=== PATIENT | female | born 1950 | race Caucasian/White ===

== ENCOUNTER 2023-07-23 10:17 | Outpatient (CLI) | payer MEDICARE, OTHER, SELFPAY ==
--- NOTE | 2023-07-23 10:15 | MR_ITS ---
[address] [address] Phone:?[phone] Fax:?[phone] Referring Physician Information: Chao Rosa M.D. [id number] [facility] [address] Phone:?[phone] Fax:?[phone] Patient:Xiomara Hernandez D.O.B:?1950 Sex:?Female Phone:?[phone] [facility] MRN:?[id number] Exam Date:?07/23/2023 EXAM: MRI of the RIGHT SHOULDER, without contrast CLINICAL INFORMATION: Female, 73 years old, with right shoulder pain. INDICATION: Evaluate for rotator cuff tear. PRIOR SURGERY: None reported. PLAIN FILMS: Shoulder radiograph dated 07/21/2023. COMPARISONS: No prior MRIs available. TECHNICAL INFORMATION: Using a 1.5T MR scanner and a localizing surface coil: coronal obliques: PD, T2, STIR sagittal obliques: PD, T2 axials: PD, T2 SEDATION: None CONTRAST: None FINDINGS: Bones: Proximal humerus: Large marginal erosions are present along the superolateral and anterosuperior aspects of the humeral head (sagittal PD series 7 images 5 & 10). This is associated with moderate bone marrow edema throughout the femoral head. No stress/occult fracture. Glenoid: Chronic-appearing deformity of the anteroinferior glenoid, without a discrete fracture, likely with superimposed poorly defined erosions. No discrete osseous Bankart lesion. Rotator cuff and muscles/tendons: Supraspinatus: Mild-moderate supraspinatus tendinopathy and fraying, without discrete tear. No muscle atrophy. Infraspinatus: Mild-moderate infraspinatus tendinopathy and fraying, without discrete tear. No muscle atrophy. Teres minor: No tendinopathy, tear or atrophy. Subscapularis: Mild tendinopathy of the superior distal subscapularis, without tendon tear or muscle atrophy. Deltoid: No strain or atrophy. Coracoacromial arch: Acromion morphology: The acromion has type II morphology. No discrete subacromial osseous spur or os acromiale. Acromiohumeral space: The acromiohumeral space is within normal limits. Coracohumeral space: The coracohumeral space is within normal limits. Acromioclavicular joint: Joint: Mild AC joint arthropathy with superimposed distal clavicular osteolysis (axial T2 series 3 images 35 & 36). Ligaments: Coracoclavicular ligaments are intact. Bursae: Subacromial-subdeltoid: Mild-moderate subacromial-subdeltoid bursitis. Subcoracoid: No convincing subcoracoid bursal thickening/bursitis. Biceps tendon: Nonvisualization of the intra-articular biceps long head tendon, which appears retracted approximately 4.7 cm down the humerus (sagittal T2 series 8 image 8). Glenohumeral joint: Effusion/cyst: Large glenohumeral joint effusion, with extensive synovitis. Articular cartilage: Humeral head: Moderate generalized thinning of the humeral head articular cartilage, with minimal marginal osteophytosis Glenoid: Moderate-marked thinning of the glenoid articular cartilage, with minimal osteophytosis. Loose bodies: No discrete intra-articular body within the joint. Labrum:?Circumferential degeneration and tearing of the labrum, which is of doubtful clinical significance. Inferior glenohumeral ligament/axillary pouch:?Intact. The axillary pouch is normal in thickness and signal. No evidence of adhesive capsulitis or capsular injury. IMPRESSION: 1. 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 2. Full-thickness avulsion/disruption of the intra-articular biceps long head tendon, with tendon retraction approximately 4.7 cm down the humerus. 3. Mild AC joint arthropathy with superposed distal clavicular osteolysis, which would further support rheumatoid arthritis as an underlying etiology. 4. Mild-moderate supraspinatus & infraspinatus and mild subscapularis tendinopathy. No rotator cuff tendon tear. 5. Chronic deformity of the anteroinferior glenoid, which is likely posttraumatic, but with likely adjacent osseous erosions. 6. Circumferential degeneration and tearing of the labrum. 7. Mild-moderate subacromial-subdeltoid bursitis. BC Electronically signed on 07/23/2023 12:44:00 PM by Srikanth Rainey M.D.
== END 2023-07-23 10:18 | disposition home or self-care (01) ==
LOC: MRI 10:18
PROVIDERS: Visit Provider Orthopaedic Surgery Sports Medicine
DX: M25.511 Pain in right shoulder (principal); M75.101 Unspecified rotator cuff tear or rupture of right shoulder, not specified as traumatic; M06.9 Rheumatoid arthritis, unspecified; S43.491A Other sprain of right shoulder joint, initial encounter; M75.51 Bursitis of right shoulder
CPT/HCPCS: 73221

== ENCOUNTER 2023-09-24 08:30 | Outpatient (RCR) | payer MEDICARE, OTHER, SELFPAY ==
--- NOTE | 2023-08-18 09:35 | PT.OPEX ---
[facility] Start: 08/18/23 07:10 Freq: Status: Active Protocol: Document 08/18/23 07:10 ISIDORO (Rec: 08/18/23 08:36 ISIDORO [id number]) E-signed By Miladis Shields, PT Physical Therapy Outpatient Evaluation Insurance Information Recert Due Date 11/12/23 Insurance Name Medicare B Medical Diagnosis Rt Shoulder RA, Rupture of Rt biceps long head Rt RC Tensonopathy Arthritis Rt AC joint Treating Diagnosis Rt shoulder pain, impaired ease of ADL's Rt shoulder impaired AROM Referring MD Dr Chao Rosa Subjective Subjective Lianna arrived 20 min late for her appt, stating she still has a difficult time assessing how much time it will take her to get ready in the morning, with her Rt arm not working as well. She reports having a trauma - got her feet tangled in a coat and she fell. She had immediate pain, occurred about 6 weeks ago. MRI demo advanced arthritis but no rotator cuff tear. Long head biceps tear. Rt dominant /Rt involved arm. Just now able to wash her own hair. The absolute hardest thing to do is put a bra on - even hooking in forward position. She works as a patent prosecution paralegal and computer use is now easier in standing than sitting. Have been using ice. Pain at front of shoulder and at the top of her shoulder. She sleeps ok, is able to get comfortable and still sleep on her Rt side. She does report having carpel tunnel and has had N/T on/off for a while. Have been doing neural glides. Live alone, . Do take ibuprofen 3X/ Day. Very difficult to complete home cleaning. Taking trash out is hard, take smaller loads. Even eating can be hard if she is tired. 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 Preferred Name Lianna Precautions Treatment Precautions/Contraindications RA/OA Therapy Limitations/Systems Review Vision Assessment Assessment/Impression 73 yo female with DX of Rt shoulder biceps long head rupture, Rt shoulder RC tendinopathy, Rt AC joint OA. She has full AROM, but with pain report of 5/10 end range - more pain returning to neutral. CX AROM is WNL, slightly reduced and painful end range Lt ROT. MMT 3+/5 FF and ABD, ER. 5/5 EXT and IR ( tested in neutral position of shoulder in stance). she has good posture and only slight Rt shoulder elevation and guarding. Hypertonicity of biceps, pect major/minor, UT and deltoid cuff. PROM in supine with slight long arm distraction is WNL and pain free. Trigger point reactive at UT and along soft tissue of med and superior scapular borders miryam. She will benefit from continued skilled physical therapy to provide STM/TPR and progression of stretch/strength HEP. Thank you for this referral. Primary Functional Limitations Pain and strength defiict Plan of Care Rehabilitation Potential Good Physical Therapy Goals In 4-6 visits, Lianna will be able to: 1. Sleep on Rt side for up to 6 hours without awakening due to pain greater than 3/10 Rt shoulder 2. IND in HEP with emphasis on alignment, reps and HOLD 3. Repetitive computer use ( work) for up to 90 min at a time without pain greater than 3/10 75% of the time and no increase in N/T In 8-10 visits, Lianna will be able to: 1. AROM WNL pain free end range to allow reaching into cabinet and lift/carry up to 5 # without pain greater than 2/ 10 90% of the time 2. MMT 5/5 to return to PLOF with house cleaning and self cares 3. hook and place bra comfortably on body without pain 4. Repetitive UE use for up to 2 hours without pain greater than 3/10 90% of the time - resume cooking, cleaning, self cares/fix her hair, drive, computer use - all at PLOF. Coordination/Communication With Referral Source Treatment Plan/Direct Interventions Joint Mobilization,Manual Therapy,Self-Care/Home Management,Therapeutic Activities,Therapeutic Exercises Frequency/Duration 1X/Wk for 10 visits Patient Will Be Discharged From Therapy Completion of LTG(s),Skills Plateau,Independent w/HEP, Independently Progressing Evaluation Billing Untimed Code Treatment Minutes 26 Complexity Moderate Certification Information Initial Certification Date 08/18/23 Ending Certification Date 11/12/23 Provider Signature Shows Agreement With POC & Medical Necessity Physician Signature & Date Requested Please Sign/Date Here Physician Comment/Change : Physician NPI Number #
== END 2024-01-22 23:59 | disposition home or self-care (01) ==
PROVIDERS: Visit Provider Orthopaedic Surgery Sports Medicine
DX: M06.9 Rheumatoid arthritis, unspecified (principal); S46.211A Strain of muscle, fascia and tendon of other parts of biceps, right arm, initial encounter; M19.011 Primary osteoarthritis, right shoulder; M67.911 Unspecified disorder of synovium and tendon, right shoulder; M25.511 Pain in right shoulder; Z74.09 Other reduced mobility; Z51.89 Encounter for other specified aftercare
CPT/HCPCS: 97110; 97140; 97162